=== PATIENT | female | born 1980 | race Caucasian/White ===

== ENCOUNTER 2017-05-12 19:45 | Emergency (ER) | payer MEDICAID ==
[~2017-05-12] VITALS: Ht 149.9 cm; Wt 61.2 kg
[~2017-05-12 19:45] MED LIST: BACITRACIN500 U/G2 TOP; CLINDAMYCIN HC300 MG PO; LAC PO; MAC100 PO; MOTRIN800 MG PO; NORCO1 TA2 PO; PROZ20 PO
[2017-05-12 20:44] LABS: CALCIUM 8.8 mg/dL (8.5-10.1); CARBON DIOXIDE 23.4 mmol/L (21-32); CHLORIDE SERUM 106 mmol/L (98-107); CREATININE SERUM 0.5 mg/dL (0.6-1.0); GFR1 > 60 mL/min; GLUCOSE SERUM 107 mg/dL (74-106); POTASSIUM SERUM 3.6 mmol/L (3.5-5.1); SODIUM SERUM 141 mmol/L (136-145)
[2017-05-12 20:46] LABS: BASOPHIL % 0.2 % (0-2); PLATELET COUNT 289 x10^3mcL (130-400)
[2017-05-12 20:49] LABS: ALBUMIN 3.7 g/dL (3.4-5.0); ALKALINE PHOSPHATASE 67 U/L (46-116); ALT/SGPT 22 U/L (14-59); AST/SGOT 12 U/L (15-37); BILIRUBIN TOTAL 0.3 mg/dL (0.20-1.00); RED CELL DISTRIBUTION WIDTH 16.2 % (11.5-14.5); TOTAL PROTEIN, SERUM 6.7 g/dL (6.4-8.2)
[2017-05-12 22:35] VITALS: BP 138/89
== END 2017-05-12 22:35 | disposition home or self-care (01) ==
LOC: ED 19:45
PROVIDERS: Emergency Medicine
DX: J40 Bronchitis, not specified as acute or chronic (principal); J32.9 Chronic sinusitis, unspecified; Z88.2 Allergy status to sulfonamides; Q05.9 Spina bifida, unspecified; M06.9 Rheumatoid arthritis, unspecified; Z88.8 Allergy status to other drugs, medicaments and biological substances
CPT/HCPCS: 83880; J1885; Q0092

== ENCOUNTER 2017-06-20 14:02 | Emergency (ER) | payer MEDICAID ==
[~2017-06-20] VITALS: Ht 147.3 cm; Wt 67.1 kg
[2017-06-20 15:40] VITALS: BP 118/67
== END 2017-06-20 15:40 | disposition home or self-care (01) ==
LOC: ED 14:02
DX: J20.9 Acute bronchitis, unspecified (principal); R07.89 Other chest pain; Q05.9 Spina bifida, unspecified; M06.9 Rheumatoid arthritis, unspecified; Z88.2 Allergy status to sulfonamides; Z88.8 Allergy status to other drugs, medicaments and biological substances
CPT/HCPCS: J7613; J7644; Q0092

== ENCOUNTER 2018-06-19 12:57 | Emergency (ER) | payer MEDICAID ==
[~2018-06-19] VITALS: Ht 149.9 cm; Wt 63.5 kg
[2018-06-19 13:00] VITALS: Ht 149.9 cm; Wt 63.5 kg
[2018-06-19 14:39] VITALS: BP 135/87
== END 2018-06-19 14:39 | disposition home or self-care (01) ==
LOC: ED 12:57
DX: F41.9 Anxiety disorder, unspecified (principal)

== ENCOUNTER 2018-06-25 05:59 | Inpatient (IN) | payer MEDICAID ==
[~2018-06-25] VITALS: Ht 149.9 cm; Wt 68.7 kg
[2018-06-25 06:04] VITALS: Ht 149.9 cm; Wt 68.7 kg
[2018-06-25 07:26] LABS: BASOPHIL % 0.5 % (0-2); PLATELET COUNT 279 x10^3mcL (130-400)
[2018-06-25 07:28] LABS: RED CELL DISTRIBUTION WIDTH 15.8 % (11.5-14.5)
[2018-06-25 07:41] LABS: CALCIUM 9.1 mg/dL (8.5-10.1); CARBON DIOXIDE 23.3 mmol/L (21-32); CHLORIDE SERUM 107 mmol/L (98-107); CREATININE SERUM 0.6 mg/dL (0.6-1.0); GFR1 > 60 mL/min; GLUCOSE SERUM 98 mg/dL (74-106); POTASSIUM SERUM 3.3 mmol/L (3.5-5.1); SODIUM SERUM 142 mmol/L (136-145)
[2018-06-25 07:45] LABS: ALBUMIN 3.7 g/dL (3.4-5.0); ALKALINE PHOSPHATASE 71 U/L (46-116); ALT/SGPT 22 U/L (14-59); AST/SGOT 17 U/L (15-37); LIPASE 194 IU/L (73-393)
[2018-06-25 07:48] LABS: microscopic required? YES; urine erythrocyte TRACE (NEGATIVE)
[2018-06-25 08:15] LABS: AMPHETAMINE QUAL UR NONE DETECTED (See below)
[2018-06-25 10:46] LABS: CHOLESTEROL/HDL RATIO 3.4; MAGNESIUM 1.9 mg/dL (1.8-2.4); PHOSPHOROUS 1.2 mg/dL (2.5-4.9)
[2018-06-25 10:53] LABS: T3 TOTAL 1.2 ng/mL
[2018-06-25 11:09] LABS: FREE T4 1.16 ng/dL (0.76-1.46); FREE THYROXINE INDEX 2.8 ug/dL (1.4-4.5)
[2018-06-25 11:25] VITALS: BP 119/86
[2018-06-25] MEDS ORDERED: TRAMADOL HCL50 MG PO (14:10)
[2018-06-25] MEDS ORDERED: NATURE'S BLEND F1 MG PO (14:11)
[2018-06-25] MEDS ORDERED: CYCLOBENZAPRINE5 MG PO (14:12)
[2018-06-25 17:50] VITALS: BP 106/68
[2018-06-25 20:37] VITALS: BP 107/58
[2018-06-26 00:02] LABS: microscopic required? YES; urine erythrocyte TRACE (NEGATIVE)
[2018-06-26 05:53] VITALS: BP 96/56
[2018-06-26 06:18] LABS: BASOPHIL % 0.8 % (0-2); PLATELET COUNT 231 x10^3mcL (130-400)
[2018-06-26 06:38] LABS: CARBON DIOXIDE 24.2 mmol/L (21-32); CHLORIDE SERUM 110 mmol/L (98-107); CREATININE SERUM 0.4 mg/dL (0.6-1.0); GFR1 > 60 mL/min; GLUCOSE SERUM 75 mg/dL (74-106); PHOSPHOROUS 2.5 mg/dL (2.5-4.9); POTASSIUM SERUM 3.6 mmol/L (3.5-5.1); SODIUM SERUM 143 mmol/L (136-145)
[2018-06-26 06:49] LABS: RED CELL DISTRIBUTION WIDTH 16.4 % (11.5-14.5)
[2018-06-26 09:17] VITALS: BP 128/85
[2018-06-26 17:01] VITALS: BP 122/84
[2018-06-26 21:28] VITALS: BP 147/82
[2018-06-27 05:50] VITALS: BP 112/69
[2018-06-27 06:02] LABS: BASOPHIL % 0.2 % (0-2); PLATELET COUNT 264 x10^3mcL (130-400)
[2018-06-27 06:25] LABS: ALKALINE PHOSPHATASE 57 U/L (46-116); ALT/SGPT 32 U/L (14-59); AST/SGOT 48 U/L (15-37); BILIRUBIN TOTAL 0.39 mg/dL (0.20-1.00); CALCIUM 8.5 mg/dL (8.5-10.1); CARBON DIOXIDE 20.3 mmol/L (21-32); CHLORIDE SERUM 104 mmol/L (98-107); CREATININE SERUM 0.4 mg/dL (0.6-1.0); GFR1 > 60 mL/min; GLUCOSE SERUM 121 mg/dL (74-106); POTASSIUM SERUM 3.9 mmol/L (3.5-5.1); SODIUM SERUM 138 mmol/L (136-145)
[2018-06-27 06:49] LABS: ALBUMIN 3.1 g/dL (3.4-5.0)
[2018-06-27 06:52] LABS: RED CELL DISTRIBUTION WIDTH 15.9 % (11.5-14.5)
[2018-06-27 09:34] VITALS: BP 137/80
[2018-06-27 16:36] VITALS: BP 113/75
[2018-06-27 21:02] VITALS: BP 144/84
[2018-06-28 06:04] VITALS: BP 102/62
[2018-06-28 06:26] LABS: BASOPHIL % 0.3 % (0-2); PLATELET COUNT 286 x10^3mcL (130-400); RED CELL DISTRIBUTION WIDTH 16.5 % (11.5-14.5)
[2018-06-28 06:45] LABS: CALCIUM 7.7 mg/dL (8.5-10.1); CARBON DIOXIDE 24.7 mmol/L (21-32); CHLORIDE SERUM 108 mmol/L (98-107); CREATININE SERUM 0.3 mg/dL (0.6-1.0); GFR1 > 60 mL/min; GLUCOSE SERUM 88 mg/dL (74-106); MAGNESIUM 1.8 mg/dL (1.8-2.4); PHOSPHOROUS 2.1 mg/dL (2.5-4.9); SODIUM SERUM 141 mmol/L (136-145)
[2018-06-28 08:35] VITALS: BP 115/69
[2018-06-28 21:04] VITALS: BP 135/91
[2018-06-29 05:48] VITALS: BP 124/79
[2018-06-29 07:11] LABS: CALCIUM 8.2 mg/dL (8.5-10.1); CARBON DIOXIDE 26.9 mmol/L (21-32); CHLORIDE SERUM 107 mmol/L (98-107); CREATININE SERUM 0.5 mg/dL (0.6-1.0); GFR1 > 60 mL/min; GLUCOSE SERUM 92 mg/dL (74-106); MAGNESIUM 1.7 mg/dL (1.8-2.4); PHOSPHOROUS 3.1 mg/dL (2.5-4.9); POTASSIUM SERUM 3.2 mmol/L (3.5-5.1); SODIUM SERUM 143 mmol/L (136-145)
[2018-06-29 07:41] LABS: BASOPHIL % 0.4 % (0-2); PLATELET COUNT 282 x10^3mcL (130-400)
[2018-06-29 07:46] LABS: RED CELL DISTRIBUTION WIDTH 16.4 % (11.5-14.5)
[2018-06-29 09:02] VITALS: BP 130/87
[2018-06-29] MEDS ORDERED: ATIVAN1 MG PO (09:57)
[2018-06-29] MEDS ORDERED: DULCOLAX STOOL100 M1 PO (09:59)
[2018-06-29 12:58] VITALS: BP 117/82
[2018-06-29 17:27] VITALS: BP 128/83
[2018-06-29 22:43] VITALS: BP 120/85
[2018-06-30 05:07] VITALS: BP 106/59
[2018-06-30 10:10] VITALS: BP 107/58
[2018-06-30 14:36] VITALS: BP 107/58
== END 2018-06-30 16:30 | disposition home or self-care (01) | DRG 263 ==
LOC: ED 05:59 → MU 09:43
PROVIDERS: Emergency Medicine; Family Medicine; Surgery
PROC: 0FT44ZZ Resection of Gallbladder, Percutaneous Endoscopic Approach (ICD-10-PCS; principal; 2018-06-26 18:00)
DX: K80.00 Calculus of gallbladder with acute cholecystitis without obstruction (principal); E83.39 Other disorders of phosphorus metabolism; N39.0 Urinary tract infection, site not specified; E87.6 Hypokalemia; E78.5 Hyperlipidemia, unspecified; M06.9 Rheumatoid arthritis, unspecified; F41.9 Anxiety disorder, unspecified; Q05.9 Spina bifida, unspecified; Z68.27 Body mass index [BMI] 27.0-27.9, adult
CPT/HCPCS: 83880; 84439; 94150; 97530-GP; 97535-GP; J0696; J1644; J1885; J2250; J2270; J2405; J2704; J2710; J3010; J3490; J7030; J7120; Q0092; Q0162; Q9967

== ENCOUNTER 2018-09-10 10:29 | Emergency (ER) | payer MEDICAID ==
[~2018-09-10] VITALS: Ht 149.9 cm; Wt 61.7 kg
[~2018-09-10 10:29] MED LIST changes: +ATIVAN1 MG PO; +CYCLOBENZAPRINE5 MG PO; +DULCOLAX STOOL100 M1 PO; +NATURE'S BLEND F1 MG PO; +TRAMADOL HCL50 MG PO
[2018-09-10 10:57] VITALS: Ht 149.9 cm; Wt 61.7 kg
[2018-09-10 12:54] LABS: CALCIUM 8.6 mg/dL (8.5-10.1); CARBON DIOXIDE 25.5 mmol/L (21-32); CHLORIDE SERUM 103 mmol/L (98-107); CREATININE SERUM 0.5 mg/dL (0.6-1.0); GFR1 > 60 mL/min; GLUCOSE SERUM 83 mg/dL (74-106); POTASSIUM SERUM 3.5 mmol/L (3.5-5.1); SODIUM SERUM 138 mmol/L (136-145)
[2018-09-10 12:58] LABS: ALKALINE PHOSPHATASE 73 U/L (46-116); ALT/SGPT 13 U/L (14-59); AST/SGOT 10 U/L (15-37); BILIRUBIN TOTAL 0.3 mg/dL (0.20-1.00); TOTAL PROTEIN, SERUM 7.1 g/dL (6.4-8.2)
[2018-09-10 13:00] LABS: ALBUMIN 3.1 g/dL (3.4-5.0)
[2018-09-10 13:12] LABS: BASOPHIL % 0.1 % (0-2); PLATELET COUNT 346 x10^3mcL (130-400)
[2018-09-10 13:14] LABS: RED CELL DISTRIBUTION WIDTH 16.2 % (11.5-14.5)
[2018-09-10 13:52] LABS: UA SPECIFIC GRAVITY 1.015 (1.005-1.035); microscopic required? YES; urine erythrocyte 2+ (NEGATIVE)
[2018-09-10 15:41] VITALS: BP 120/74
== END 2018-09-10 15:41 | disposition home or self-care (01) ==
LOC: ED 10:29
PROVIDERS: Emergency Medicine
DX: N10 Acute pyelonephritis (principal); A41.89 Other specified sepsis; Z88.2 Allergy status to sulfonamides; Z88.5 Allergy status to narcotic agent; Z88.8 Allergy status to other drugs, medicaments and biological substances
CPT/HCPCS: 87804; J0696; J1885; J2405; J7030; J7040; Q0092

== ENCOUNTER 2019-05-01 11:04 | Emergency (ER) | payer MEDICAID | END 2019-05-01 12:22 | disposition left against medical advice (07) | LOC: ED 11:04 | DX: Z53.21 Procedure and treatment not carried out due to patient leaving prior to being seen by health care provider (principal) ==

== ENCOUNTER 2019-07-29 12:50 | Emergency (ER) | payer MEDICAID ==
[~2019-07-29] VITALS: Ht 152.4 cm; Wt 62.6 kg
[2019-07-29 13:10] VITALS: BP 123/91; Ht 152.4 cm; Wt 62.6 kg
== END 2019-07-29 14:00 | disposition home or self-care (01) ==
LOC: ED 12:50
DX: R21 Rash and other nonspecific skin eruption (principal); L29.9 Pruritus, unspecified; M79.622 Pain in left upper arm; M79.621 Pain in right upper arm; M79.661 Pain in right lower leg; Z88.2 Allergy status to sulfonamides; Z88.8 Allergy status to other drugs, medicaments and biological substances; Z90.49 Acquired absence of other specified parts of digestive tract

== ENCOUNTER 2019-12-24 11:13 | Emergency (ER) | payer MEDICAID ==
[~2019-12-24] VITALS: Ht 147.3 cm; Wt 63.5 kg
[2019-12-24 11:30] VITALS: Ht 147.3 cm; Wt 63.5 kg
[2019-12-24 14:52] VITALS: BP 137/82
== END 2019-12-24 14:52 | disposition home or self-care (01) ==
LOC: ED 11:13
DX: R05 Cough (principal); R19.7 Diarrhea, unspecified; R50.9 Fever, unspecified; M06.9 Rheumatoid arthritis, unspecified; I10 Essential (primary) hypertension; Q05.9 Spina bifida, unspecified; Z90.49 Acquired absence of other specified parts of digestive tract
CPT/HCPCS: 87804; Q0092